=== PATIENT | female | born 1965 | race African-American/Black ===

== ENCOUNTER 2024-01-21 20:46 | Inpatient (IN) | payer MEDICARE, MEDICAID, SELFPAY ==
--- NOTE | ~2024-01-21 | CT_ITS ---
EXAMINATION: CT brain wo con DATE: 01/22/2024 10:16 INDICATION: Altered mental status. Delusions. TECHNIQUE: Computed tomography (CT) of the head was performed without intravenous contrast. Sagittal and coronal reconstructions were performed. The mA was adjusted according to patient size. Iterative reconstruction technique was employed. The dose-length product was 605.33 mGy-cm. COMPARISON: None FINDINGS: No acute intracranial hemorrhage, acute infarction or abnormal extra axial fluid collection. There is minimal scattered white matter hypoattenuation consistent with chronic small vessel ischemic disease . Mild increased prominence of the subarachnoid spaces overlying the convexities consistent with mild age-appropriate diffuse cerebral volume loss. Ventricles are normal and symmetric. No mass/mass eff ect. There is an empty sella with pituitary tissue flattened along the floor of the mildly prominen t CSF filled sella. The orbits, paranasal sinuses and mastoid air cells are normal. IMPRESSION: 1. Normal aging brain. No acute intracranial process. 2. Empty sella which can be seen in the setting of normal pressure hydrocephalus. Reviewed, dictated and finalized at location A. NEERING AND DEVELOPMENT DIRECTOR IMPRESSION: 1. Normal aging brain. No acute intracranial process. 2. Empty sella which can be seen in the setting of normal pressure hydrocepha jose.
[2024-01-21 20:47] VITALS: BP 147/90; PULSE 107; RESP 18; TEMP 36.7; O2SAT 92
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
--- NOTE | 2024-01-21 21:27 | ECG_ITS ---
Test Date: 2024-01-21 22:35:09 Measurements Intervals [place] Rate: P: SC: QRS: QRSD: T: QT: QTc: Interpretive Statements SINUS RHYTHM VENTRICULAR PREMATURE COMPLEX POSSIBLE LEFT ATRIAL ENLARGEMENT LEFT VENTRICULAR HYPERTROPHY WITH ST-T CHANGE BASELINE ARTIFACT- I, II, AVR BORDERLINE ECG Electronically Signed On 01-23-2024 11:39:13 PSYCHOTHERAPIST by Karan Siddiqui D.O.
--- NOTE | 2024-01-21 21:30 | PC.NURSE ---
State officer here to speak w/ pt about her [employer]. Per his report her vehicle has been towed to [place] and is being held in a lot per [employer] rules. They were unable to drop vehicle here at hospital due to officers eval that pt isn't fit to drive at this time. Pt worried about how she is going to get the vehicle and all her belongings. Pt reassured by officer that everything is safe and this staff reassured pt that we will have to evaluate her first and make decisions about her vehicle later. Pt calmed easily and is polite and cooperative with all care. She then starts speaking about not wanting to go to a psychiatric facility because the are all very mean at those places and that is not what I need. Pt states she needs some assistance in getting into an assisted living somewhere and she has vouchers to live at some of these places.
--- NOTE | 2024-01-21 21:31 | PC.NURSE ---
covid swab sent to lab
[2024-01-21 21:47] LABS: Basophils Absolute Auto 0.05 K/mm3 (0.00-0.10); Basophils Percent Auto 0.4 % (0.0-1.0); Eosinophils Absolute Auto 0.22 K/mm3 (0.02-0.50); Eosinophils Percent Auto 1.9 % (1.0-6.0); Hematocrit 35.8 % (35.0-49.0); Hemoglobin 11.7 g/dL (12.0-15.0); Immature Granulocyte Absolute 0.05 K/mm3 (0.00-0.00); Immature Granulocyte Percent A 0.4 % (0.0-0.0); Lymphocytes Absolute Auto 1.56 K/mm3 (1.10-4.50); Lymphocytes Percent Auto 13.3 % (18.0-42.0); Mean Corpuscular HGB Conc 32.7 g/dL (32-36); Mean Corpuscular Hemoglobin 27.9 pg (27.0-31.0); Mean Corpuscular Volume 85.2 fL (78.0-102.0); Mean Platelet Volume 10.3 fl (9.2-11.8); Monocytes Absolute Auto 0.85 K/mm3 (0.10-0.90); Monocytes Percent Auto 7.2 % (2.0-11.0); Neutrophils Percent Auto 76.8 % (50.0-70.0); Platelet Count Result 326 K/mm3 (150-420); Red Cell Distribution Width 13.3 % (11.6-14.4); White Blood Count 11.7 K/mm3 (4.8-10.8)
[2024-01-21] MEDS: NAPROXEN 250 MG TABLET 500 MG PO (21:59)
[2024-01-21] MEDS: HALOPERIDOL 0.5 MG TABLET PO (22:02)
[2024-01-21 22:08] LABS: Alanine Aminotransferase 9 U/L (14-59); Albumin Level 2.7 g/dL (3.4-5.0); Alkaline Phosphatase 79 U/L (46-116); Anion Gap 10 mmol/L (4-12); Aspartate Amino Transferase < 10 U/L (15-37); Blood Urea Nitrogen 9 mg/dL (7-18); Calcium 8.5 mg/dL (8.5-10.1); Carbon Dioxide 34 mmol/L (21-32); Chloride 100 mmol/L (98-108); Estimated CRCL calculation 73 ml/min; Estimated Glomerular Filt Rate > 60; Glucose 145 mg/dL (70-99); Osmolality Calculated 299 mOsm/kg (285-295); Sodium 144 mmol/L (136-145); Total Protein 7.7 g/dL (6.4-8.2)
[2024-01-21 22:10] LABS: Ethanol < 3 mg/dL (0-6)
--- NOTE | 2024-01-21 22:10 | PC.NURSE ---
Pt given po meds for pain and Haldol po. Explained reason for meds and pt somewhat reluctant to take her po meds. This RN stood to watch pt take her meds and she slowly put them in her mouth and did take them.
[2024-01-21 22:11] LABS: Potassium 2.1 mmol/L (3.5-5.1)
[2024-01-21 22:12] LABS: Thyroid Stimulating Hormone Reflex 0.81 u/IU/mL (0.36-3.74)
[2024-01-21 22:14] VITALS: BP 152/87; PULSE 75; RESP 18; O2SAT 94
[2024-01-21 22:36] LABS: SARS-CoV-2 Ag Negative (Negative)
[2024-01-21] MEDS: SODIUM CHLORIDE 0.9% IV 1,000 ML 999 ML IV CONT (22:42)
[2024-01-21] MEDS: KCL 20 MEQ/SW 100 ML 100 ML 50 MEQ IVPB (22:45)
--- NOTE | 2024-01-21 22:57 | PC.NURSE ---
Pt to go to Rm 205
--- NOTE | 2024-01-21 22:58 | PC.NURSE ---
Pt to go to Rm 206, report given to ERICA Sanabria
[2024-01-21 23:35] VITALS: BP 150/75; PULSE 78; RESP 18; TEMP 36.6; O2SAT 94
[2024-01-22] VITALS (7 sets, daily range): BP systolic 143–166; BP diastolic 60–84; PULSE 80–97; RESP 16–18; TEMP 36.2–36.8; O2SAT 93–97; BMI 38.7
--- NOTE | 2024-01-22 00:22 | ADMGEN ---
This patient, Willow Beebe, was admitted to 2nd Floor Room 206-1. Patient/family oriented to hospital policies and general routines including ID bracelet, bed and alarms, visiting hours, pain management, procedures, bathroom and other care routines, personal items, smoking policy, room service/diet, and visiting hours. Information on how to activate the Rapid Response Team has been discussed. Patient/Family are encouraged to report perceived risks to care and to ask questions if they do not understand what they are told or what they should do.
[2024-01-22] MEDS: SODIUM CHLORIDE 0.9% IV 1,000 ML 100 ML IV CONT (00:41)
[2024-01-22 06:28] LABS: Basophils Absolute Auto 0.03 K/mm3 (0.00-0.10); Basophils Percent Auto 0.3 % (0.0-1.0); Eosinophils Absolute Auto 0.45 K/mm3 (0.02-0.50); Eosinophils Percent Auto 4.9 % (1.0-6.0); Hematocrit 32.8 % (35.0-49.0); Hemoglobin 10.5 g/dL (12.0-15.0); Immature Granulocyte Absolute 0.05 K/mm3 (0.00-0.00); Immature Granulocyte Percent A 0.5 % (0.0-0.0); Lymphocytes Absolute Auto 1.64 K/mm3 (1.10-4.50); Mean Corpuscular Hemoglobin 27.2 pg (27.0-31.0); Mean Platelet Volume 10.5 fl (9.2-11.8); Monocytes Absolute Auto 0.59 K/mm3 (0.10-0.90); Monocytes Percent Auto 6.5 % (2.0-11.0); Neutrophils Absolute Auto 6.37 K/mm3 (1.70-7.20); Neutrophils Percent Auto 69.8 % (50.0-70.0); Platelet Count Result 269 K/mm3 (150-420); Red Blood Count 3.86 M/mm3 (4.20-5.40); Red Cell Distribution Width 13.5 % (11.6-14.4); White Blood Count 9.1 K/mm3 (4.8-10.8)
[2024-01-22 06:48] LABS: Alanine Aminotransferase 8 U/L (14-59); Albumin Level 2.4 g/dL (3.4-5.0); Alkaline Phosphatase 71 U/L (46-116); Anion Gap 8 mmol/L (4-12); Aspartate Amino Transferase < 10 U/L (15-37); Bilirubin,Total 0.8 mg/dL (0.00-1.00); Blood Urea Nitrogen 9 mg/dL (7-18); Calcium 8.2 mg/dL (8.5-10.1); Carbon Dioxide 33 mmol/L (21-32); Chloride 104 mmol/L (98-108); Estimated CRCL calculation 101 ml/min; Estimated Glomerular Filt Rate > 60; Glucose 95 mg/dL (70-99); Osmolality Calculated 298 mOsm/kg (285-295); Sodium 145 mmol/L (136-145); Total Protein 6.8 g/dL (6.4-8.2)
[2024-01-22 06:52] LABS: Potassium 2.1 mmol/L (3.5-5.1)
--- NOTE | 2024-01-22 06:58 | PC.NURSE ---
Lab called to report a critical potassium value of 2.1. Pierce Lundy NP, notified of results. No new orders at this time.
[2024-01-22 07:02] LABS: Magnesium 1.7 mg/dL (1.8-2.4)
[2024-01-22] MEDS: ACETAMINOPHEN 325 MG TABLET 650 MG PO ×2 (07:51→20:19)
[2024-01-22] MEDS: POTASSIUM CHLORIDE 20 MEQ ER TABLET 40 MEQ PO ×2 (07:51→20:18)
[2024-01-22] MEDS: KCL 20MEQ/0.9% SOD CHL 1,000 ML 100 ML IV CONT (07:51)
[2024-01-22 08:44] LABS: Add Urine Microscopic? YES; Bilirubin Urine Negative (Negative); Blood Urine Negative (Negative); Color Urine Yellow (Yellow); Glucose Urine UA Negative (Negative); Ketones Urine Trace (Negative); Leukocyte Esterase Ur Trace LEU/UL (Negative); Nitrate Urine Negative (Negative); Protein Urine 1+ (Negative)
[2024-01-22 08:53] LABS: Amphetamine Screen Urine Negative (Negative); Barbiturate Screen Urine Negative (Negative); Benzodiazepines Screen Urine Negative (Negative); Cannabinoid Screen Urine Negative (Negative); Cocaine Screen Urine Negative (Negative); Methadone Screen Urine Negative (Negative); Opiate Screen Urine Negative (Negative); Phencyclidine Screen Urine Negative (Negative)
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
[2024-01-22 09:31] LABS: Appearance Urine Sl Cloudy (Clear); RBC Urine 0-2 /hpf (0-2); Squamous Epithelial Cell Urine Many /hpf (Few)
[2024-01-22 09:32] LABS: Amorphous Sediment Urine Moderate; Bacteria Urine 1+ /hpf; White Blood Cell Casts Urine Present /lpf
[2024-01-22] MEDS: MAGNESIUM SULF 2 GM/WATER 50ML 2 GM/50 ML BAG IVPB (10:19)
[2024-01-22 10:54] LABS: Folic Acid 3.7 ng/mL (8.6->20); Vitamin B12 470 pg/mL (193-986)
[2024-01-22 10:56] LABS: Iron 21 ug/dL (50-170); Percent Iron Saturation 8 % (12-57)
[2024-01-22] MEDS: FOLIC ACID 1 MG TABLET PO (12:13)
[2024-01-22] MEDS: FERROUS SULFATE 325 MG TABLET DR PO (12:13)
[2024-01-22] MEDS: amLODIPine BESYLATE 5 MG TABLET 10 MG PO (18:20)
[2024-01-22] MEDS: PANTOPRAZOLE 40 MG TABLET PO (18:20)
[2024-01-22 19:01] LABS: Potassium 2.9 mmol/L (3.5-5.1)
[2024-01-22] MEDS: DICLOFENAC SODIUM 1% 100 GM GEL (*BKC) 1 APPLIC TOPICAL (20:20)
[2024-01-23] VITALS: BP 144/74; PULSE 84; RESP 16; TEMP 36.7; O2SAT 98
[2024-01-23 04:00] VITALS: BP 152/74; PULSE 88; RESP 16; TEMP 36.4; O2SAT 98
[2024-01-23 05:24] LABS: Basophils Absolute Auto 0.04 K/mm3 (0.00-0.10); Basophils Percent Auto 0.5 % (0.0-1.0); Eosinophils Absolute Auto 0.71 K/mm3 (0.02-0.50); Eosinophils Percent Auto 8.2 % (1.0-6.0); Hematocrit 31.5 % (35.0-49.0); Immature Granulocyte Absolute 0.03 K/mm3 (0.00-0.00); Immature Granulocyte Percent A 0.3 % (0.0-0.0); Lymphocytes Absolute Auto 1.32 K/mm3 (1.10-4.50); Lymphocytes Percent Auto 15.3 % (18.0-42.0); Mean Corpuscular HGB Conc 31.7 g/dL (32-36); Mean Corpuscular Hemoglobin 27.1 pg (27.0-31.0); Mean Corpuscular Volume 85.4 fL (78.0-102.0); Monocytes Percent Auto 5.8 % (2.0-11.0); Neutrophils Absolute Auto 6.04 K/mm3 (1.70-7.20); Neutrophils Percent Auto 69.9 % (50.0-70.0); Platelet Count Result 283 K/mm3 (150-420); Red Blood Count 3.69 M/mm3 (4.20-5.40); Red Cell Distribution Width 13.3 % (11.6-14.4); White Blood Count 8.6 K/mm3 (4.8-10.8)
[2024-01-23 05:49] LABS: Alanine Aminotransferase 7 U/L (14-59); Albumin Level 2.2 g/dL (3.4-5.0); Alkaline Phosphatase 71 U/L (46-116); Anion Gap 6 mmol/L (4-12); Aspartate Amino Transferase < 10 U/L (15-37); Bilirubin,Total 0.5 mg/dL (0.00-1.00); Blood Urea Nitrogen 6 mg/dL (7-18); Calcium 8.2 mg/dL (8.5-10.1); Carbon Dioxide 33 mmol/L (21-32); Chloride 107 mmol/L (98-108); Estimated CRCL calculation 126 ml/min; Estimated Glomerular Filt Rate > 60; Glucose 92 mg/dL (70-99); NT Pro B Type Natriuretic Pept 124 pg/mL (0-125); Osmolality Calculated 299 mOsm/kg (285-295); Potassium 2.8 mmol/L (3.5-5.1); Sodium 146 mmol/L (136-145); Total Protein 6.5 g/dL (6.4-8.2)
[2024-01-23 08:00] VITALS: BP 160/75; PULSE 86; PULSE 88; RESP 14; TEMP 37; O2SAT 98
[2024-01-23 08:17] LABS: Chlamydia trachomatis NOT DETECTED (NOT DETECTE); Neisseria gonorrhoeae PCR NOT DETECTED (NOT DETECTE)
--- NOTE | 2024-01-23 08:17 | PM.IMPN ---
Progress Note: A&P Assessment and Plan (1) Acute hypokalemia: Code(s): E87.6 - Hypokalemia Status: Acute Assessment and Plan: K 2.1 on admission. She received potassium 20 meq IVPB in the ED. Repeat labs showed a K 2.1. Patient received Potassium 40 meq PO and 600 ml of NS with 20 of K+ Magnesium was low at 1.7. Started on Magnesium 2 gram IVPB. She is on tele without ectopy Repeat labs in the afternoon showed low potassium 2.9 and she again received 40 mEq of p.o. K+ potassium this morning 01/22 is 2.8. She will receive 40 mEq p.o. K daily, and potassium 20 mEq IV piggyback added daily Mag-Ox (2) Schizophrenia: Qualifiers: Schizophrenia type: unspecified Qualified Code(s): F20.9 - Schizophrenia, unspecified Code(s): F20.9 - Schizophrenia, unspecified Status: Acute Assessment and Plan: Patient thinks Hai is able to speak through her as a vessel. She denies visual or auditory hallucinations but then says she just hears the voices. She denies suicide or homicidal thoughts. She states she has never attempted suicide. She is refusing psychiatric evaluation for inpatient psych at this time. flufenazine is non formulary. Patient with psychotic symptoms. will start her on Zyprexa daily 5 mg. may increase dose based on response and tolerability in increments of 5 mg/day at intervals >= week up to 20 mg/day prn haldol if she becomes agitated and aggressive prn attarax for anxiety qtc on EKG was 356/408 Not homicidal or suicidal Mini mental to be completed by speech therapy (3) Delusions: Code(s): F22 - Delusional disorders Status: Acute Assessment and Plan: Rule out other causes of possible altered cognition. CT head with no acute intracranial findings. No focal neurological deficits UDS negative, ETOH negative Vitamin B12 normal, folate low, Iron 21 and saturation 8% Started on folic acid and ferrous sulfate Hepatitis panel, RPR pending. Gonorrhea and chlamydia negative. TSH 0.81 (4) HTN (hypertension): Code(s): I10 - Essential (primary) hypertension Status: Acute Assessment and Plan: blood pressure is elevated 150s to 160s over 80s. Resumed amlodipine 10 mg daily monitor blood pressure response (5) Herpes: Code(s): B00.9 - Herpesviral infection, unspecified Status: Acute Assessment and Plan: patient reports a history of herpes and is on suppressive therapy with acyclovir resume acyclovir orally can add topical acyclovir if outbreak occurs (6) Arthritis: Code(s): M19.90 - Unspecified osteoarthritis, unspecified site Status: Acute Assessment and Plan: Patient states she has RA but this is unclear. She speaks about having steroid injections from an orthopedic doctor. Diclofenac gel Ibuprofen 600 mg PO as needed and Tylenol as needed for pain Plan Care coordination is assisting with safe discharge plan. Subjective Date/time seen: 01/23/24 08:17 Interval history: No acute events overnight. Patient has no complaints of headache, dizziness, chest pain, shortness a breath, abdominal pain, nausea, vomiting, diarrhea, or constipation. She had some neck pain yesterday that is improved with diclofenac gel. Review of Systems Review of Systems: All systems reviewed & are unremarkable except as noted in HPI and below Exam Narrative: General: appears comfortable, in no acute distress Respiratory: breathing is unlabored with even chest rise/fall, lungs are clear but diminished without wheezing, rhonchi, and crackles Cardiovascular: Rate and rhythm regular, normal s1s2, no murmur Abdomen: Soft, round, non-tender, active bowel sounds Extremities: No cyanosis or clubbing. Pulses 2/2. Slight bilateral lower extremity edema left greater that right. Neuro: A&O x 4, delusional Skin: Warm, dry, intact Objective Data Vital Signs Vital Signs: Vital Signs - 24 hr 01/22/24 11:40 01/22/24 12:00 01/22/24 16:00 Temperature 98 F Pulse Rate 84 97 80 Respiratory Rate 17 Blood Pressure 154/60 H Pulse Oximetry 96 Oxygen Delivery Room Air 01/22/24 16:00 01/22/24 20:00 01/22/24 20:00 Temperature 97.1 F L 97.4 F L Pulse Rate 92 84 86 Respiratory Rate 18 16 Blood Pressure 162/84 H 158/77 H Pulse Oximetry 97 97 Oxygen Delivery Room Air Room Air 01/23/24 00:00 01/23/24 00:00 01/23/24 04:00 Temperature 98.0 F Pulse Rate 84 84 88 Respiratory Rate 16 Blood Pressure 144/74 H Pulse Oximetry 98 Oxygen Delivery Room Air 01/23/24 04:00 Temperature 97.5 F L Pulse Rate 88 Respiratory Rate 16 Blood Pressure 152/74 H Pulse Oximetry 98 Oxygen Delivery Room Air Intake/Output Intake/Output: Intake & Output 01/21/24 01/22/24 01/22/24 01/23/24 00:59 00:59 23:59 23:59 Intake Total 520 Output Total 400 Balance 120 Meds/Results Medications: Active Medications Generic Name Dose Route Start Last Admin Trade Name Freq PRN Reason Stop Dose Admin Acetaminophen 650 mg 01/21/24 22:27 01/22/24 20:19 Acetaminophen 325 Mg Tablet PO 650 mg Q4H PRN Administration Mild Pain (1-3) or Fever Acyclovir 800 mg 01/23/24 09:00 Acyclovir 200 Mg Capsule PO DAILY [facility] Amlodipine Besylate 10 mg 01/22/24 17:15 01/22/24 18:20 Amlodipine Besylate 5 Mg Tablet PO 10 mg DAILY [facility] Administration Diclofenac Sodium 1 applic 01/22/24 21:00 01/22/24 20:20 Diclofenac Sodium 1% 100 Gm Gel (*Bk) TOPICAL 1 applic QID [facility] Administration Enoxaparin Sodium 40 mg 01/23/24 09:00 Enoxaparin 40 Mg/0.4 Ml Syringe SUB-Q DAILY [facility] Ferrous Sulfate 325 mg 01/22/24 11:15 01/22/24 12:13 Ferrous Sulfate [address] PO 325 mg DAILY [facility] Administration Folic Acid 1 mg 01/22/24 11:15 01/22/24 12:13 Folic Acid 1 Mg Tablet PO 1 mg DAILY [facility] Administration Haloperidol 0.5 mg 01/22/24 17:19 Haloperidol 0.5 Mg Tablet PO ONCE PRN agitation Hydroxyzine HCl 25 mg 01/22/24 17:21 Hydroxyzine Hcl 25 Mg Tablet PO Q6H PRN Itching Potassium Chloride 100 mls @ 50 mls/hr 01/23/24 08:16 Kcl 20 Meq/Sw 100 Ml IVPB 01/23/24 10:15 ONCE ONE Magnesium Oxide 400 mg 01/23/24 09:00 Magnesium Oxide 400 Mg Tablet PO DAILY [facility] Olanzapine 5 mg 01/23/24 21:00 Olanzapine Dispertab 5 Mg PO HS [facility] Pantoprazole Sodium 40 mg 01/22/24 17:55 01/22/24 18:20 Pantoprazole 40 Mg Tablet PO 40 mg QAM ERIKA Administration Potassium Chloride 40 meq 01/23/24 08:15 Potassium Chloride 20 Meq Er Tablet PO BIDWM ERIKA Radiology Results: ITS Impressions Head CT 01/22/24 11:52 IMPRESSION: 1. Normal aging brain. No acute intracranial process. 2. Empty sella which can be seen in the setting of normal pressure hydrocephalus. Labs Labs: Laboratory Results - last 24 hr 01/21/24 01/22/24 01/22/24 21:42 05:42 18:46 WBC RBC Hgb Hct MCV MCH MCHC RDW Plt Count MPV Immature Gran % (Auto) Neut % (Auto) Lymph % (Auto) [place] % (Auto) Eos % (Auto) Baso % (Auto) Lymph # (Auto) [place] # (Auto) Eos # (Auto) Baso # (Auto) Abs Immat Gran (auto) Absolute Neuts (auto) Absolute Nucleated RBC Nucleated RBC % Sodium Potassium 2.9 L Chloride Carbon Dioxide Anion Gap BUN Creatinine Estim Creat Clear Calc Estimated GFR Glucose Calculated Osmolality Calcium Magnesium 2.0 Iron 21 L TIBC 278 % Saturation 8 L Total Bilirubin AST ALT Alkaline Phosphatase NT-Pro-B Natriuret Pep Total Protein Albumin Vitamin B12 470 Folate 3.7 L Urine Color Yellow Urine Appearance Sl cloudy A Urine pH 6.0 Ur Specific [place] 1.020 Urine Protein 1+ H Urine Glucose (UA) Negative Urine Ketones Trace H Ur Blood (Man) Negative Urine Nitrate Negative Urine Bilirubin Negative Urine Urobilinogen 1.0 Leukocyte Esterase Rfl Trace H Urine RBC 0-2 Urine WBC 7-9 H Ur Squamous Epith Cells Many H Amorphous Sediment Moderate H Urine Bacteria 1+ H Hyaline Casts 3-4 H Granular Casts 5-9 H WBC Casts Present H Urine Opiates Screen Negative Urine Methadone Screen Negative Ur Barbiturates Screen Negative Ur Phencyclidine Scrn Negative Ur Amphetamine Screen Negative U Benzodiazepines Scrn Negative Urine Cocaine Screen Negative U Cannabinoids Screen Negative 01/23/24 05:09 WBC 8.6 RBC 3.69 L Hgb 10.0 L Hct 31.5 L MCV 85.4 MCH 27.1 MCHC 31.7 L RDW 13.3 Plt Count 283 MPV 10.0 Immature Gran % (Auto) 0.3 H Neut % (Auto) 69.9 Lymph % (Auto) 15.3 L [place] % (Auto) 5.8 Eos % (Auto) 8.2 H Baso % (Auto) 0.5 Lymph # (Auto) 1.32 [place] # (Auto) 0.50 Eos # (Auto) 0.71 H Baso # (Auto) 0.04 Abs Immat Gran (auto) 0.03 H Absolute Neuts (auto) 6.04 Absolute Nucleated RBC 0.00 Nucleated RBC % 0.0 Sodium 146 H Potassium 2.8 L Chloride 107 Carbon Dioxide 33 H Anion Gap 6 BUN 6 L Creatinine 0.50 L Estim Creat Clear Calc 126 Estimated GFR > 60 Glucose 92 Calculated Osmolality 299 H Calcium 8.2 L Magnesium Iron TIBC % Saturation Total Bilirubin 0.5 AST < 10 L ALT 7 L Alkaline Phosphatase 71 NT-Pro-B Natriuret Pep 124 Total Protein 6.5 Albumin 2.2 L Vitamin B12 Folate Urine Color Urine Appearance Urine pH Ur Specific [place] Urine Protein Urine Glucose (UA) Urine Ketones Ur Blood (Man) Urine Nitrate Urine Bilirubin Urine Urobilinogen Leukocyte Esterase Rfl Urine RBC Urine WBC Ur Squamous Epith Cells Amorphous Sediment Urine Bacteria Hyaline Casts Granular Casts WBC Casts Urine Opiates Screen Urine Methadone Screen Ur Barbiturates Screen Ur Phencyclidine Scrn Ur Amphetamine Screen U Benzodiazepines Scrn Urine Cocaine Screen U Cannabinoids Screen Quality VTE Prophylaxis VTE prophylaxis: pharmacologic ordered
[2024-01-23] MEDS: DICLOFENAC SODIUM 1% 100 GM GEL (*BKC) 1 APPLIC TOPICAL ×4 (10:37→21:30)
[2024-01-23] MEDS: KCL 20 MEQ/SW 100 ML 100 ML 50 MEQ IVPB (10:37)
[2024-01-23] MEDS: POTASSIUM CHLORIDE 20 MEQ ER TABLET 40 MEQ PO (10:38)
[2024-01-23] MEDS: ENOXAPARIN 40 MG/0.4 ML SYRINGE SUB-Q (10:39)
[2024-01-23] MEDS: MAGNESIUM OXIDE 400 MG TABLET PO (10:40)
[2024-01-23] MEDS: FOLIC ACID 1 MG TABLET PO (10:40)
[2024-01-23] MEDS: FERROUS SULFATE 325 MG TABLET DR PO (10:40)
[2024-01-23] MEDS: PANTOPRAZOLE 40 MG TABLET PO (10:40)
[2024-01-23] MEDS: ACYCLOVIR 200 MG CAPSULE 800 MG PO (10:41)
[2024-01-23] MEDS: amLODIPine BESYLATE 5 MG TABLET 10 MG PO (10:41)
[2024-01-23 12:00] VITALS: BP 160/78; PULSE 88; PULSE 92; RESP 14; TEMP 37.1; O2SAT 98
[2024-01-23] MEDS: SODIUM CHLORIDE 0.9% IV 500 ML 30 ML IV CONT (15:00)
[2024-01-23 16:00] VITALS: BP 138/81; PULSE 78; RESP 16; TEMP 36.6; O2SAT 98
[2024-01-23 20:00] VITALS: BP 144/64; PULSE 100; PULSE 95; RESP 16; TEMP 36.8; O2SAT 94
[2024-01-23] MEDS: IBUPROFEN 600 MG TABLET PO (21:31)
[2024-01-23] MEDS: OLANZapine DISPERTAB 5 MG PO (21:32)
[2024-01-24] VITALS: BP 158/65; PULSE 107; PULSE 96; RESP 16; TEMP 36.7; O2SAT 91
[2024-01-24 04:00] VITALS: BP 188/97; PULSE 82; PULSE 92; RESP 16; TEMP 36.8; O2SAT 93
[2024-01-24 05:58] LABS: Hematocrit 33.7 % (35.0-49.0); Hemoglobin 10.7 g/dL (12.0-15.0); Mean Corpuscular HGB Conc 31.8 g/dL (32-36); Mean Corpuscular Hemoglobin 27.2 pg (27.0-31.0); Mean Corpuscular Volume 85.5 fL (78.0-102.0); Mean Platelet Volume 10.1 fl (9.2-11.8); Platelet Count Result 337 K/mm3 (150-420); Red Blood Count 3.94 M/mm3 (4.20-5.40); Red Cell Distribution Width 13.3 % (11.6-14.4); White Blood Count 7.3 K/mm3 (4.8-10.8)
[2024-01-24 06:07] LABS: Alanine Aminotransferase 8 U/L (14-59); Albumin Level 2.5 g/dL (3.4-5.0); Alkaline Phosphatase 74 U/L (46-116); Anion Gap 7 mmol/L (4-12); Aspartate Amino Transferase < 10 U/L (15-37); Bilirubin,Total 0.5 mg/dL (0.00-1.00); Blood Urea Nitrogen 6 mg/dL (7-18); Calcium 8.5 mg/dL (8.5-10.1); Carbon Dioxide 32 mmol/L (21-32); Chloride 105 mmol/L (98-108); Estimated CRCL calculation 122 ml/min; Estimated Glomerular Filt Rate > 60; Glucose 90 mg/dL (70-99); Osmolality Calculated 295 mOsm/kg (285-295); Potassium 3.2 mmol/L (3.5-5.1); Sodium 144 mmol/L (136-145); Total Protein 7.2 g/dL (6.4-8.2)
[2024-01-24 06:28] LABS: Band Neutrophils Percent 0 % (0-6); Basophils Percent Manual 0 % (0-1); Eosinophils Absolute Manual 0.58 K/mm3 (0.02-0.50); Eosinophils Percent Manual 8 % (1-6); Lymphocytes Absolute Manual 1.82 K/mm3 (1.1-4.5); Lymphocytes Percent Manual 25 % (18-44); Monocytes Absolute Manual 0.14 K/mm3 (0.1-0.90); Monocytes Percent Manual 2 % (3-9); Neutrophils Absolute Manual 4.74 K/mm3 (1.7-7.2); Neutrophils Percent Manual 65 % (46-73); Platelet Estimate Adequate (Adequate); Total Cells Counted 100
[2024-01-24 08:00] VITALS: BP 158/80; PULSE 84; RESP 18; TEMP 36.3; O2SAT 95
[2024-01-24] MEDS: POTASSIUM CHLORIDE 20 MEQ ER TABLET 40 MEQ PO (09:09)
[2024-01-24] MEDS: IBUPROFEN 600 MG TABLET PO (09:10)
[2024-01-24] MEDS: amLODIPine BESYLATE 5 MG TABLET 10 MG PO (09:10)
[2024-01-24] MEDS: FOLIC ACID 1 MG TABLET PO (09:10)
[2024-01-24] MEDS: MAGNESIUM OXIDE 400 MG TABLET PO (09:10)
[2024-01-24] MEDS: PANTOPRAZOLE 40 MG TABLET PO (09:10)
[2024-01-24] MEDS: ACYCLOVIR 200 MG CAPSULE 800 MG PO (09:12)
[2024-01-24] MEDS: FERROUS SULFATE 325 MG TABLET DR PO (09:12)
[2024-01-24] MEDS: ENOXAPARIN 40 MG/0.4 ML SYRINGE SUB-Q (09:13)
[2024-01-24] MEDS: DICLOFENAC SODIUM 1% 100 GM GEL (*BKC) 1 APPLIC TOPICAL ×2 (09:13→12:51)
--- NOTE | 2024-01-24 09:57 | P.PNIM_ITS ---
Progress Note: A&P Assessment and Plan (1) Acute hypokalemia: Code(s): E87.6 - Hypokalemia Status: Acute Assessment and Plan: K 2.1 on admission. She received potassium 20 meq IVPB in the ED. Repeat labs showed a K 2.1. * Patient received Potassium 40 meq PO and 600 ml of NS with 20 of K+ * Magnesium was low at 1.7. Started on Magnesium 2 gram IVPB. * She is on tele without ectopy * Repeat labs in the afternoon showed low potassium 2.9 and she again received 40 mEq of p.o. K+ * potassium this morning 01/22 is 2.8. She will receive 40 mEq p.o. K daily, and potassium 20 mEq IV piggyback * added daily Mag-Ox (2) Schizophrenia: Qualifiers: Schizophrenia type: unspecified Qualified Code(s): F20.9 - Schizophrenia, unspecified Code(s): F20.9 - Schizophrenia, unspecified Status: Acute Assessment and Plan: Patient thinks Hai is able to speak through her as a vessel. She denies visual or auditory hallucinations but then says she just hears the voices. She denies suicide or homicidal thoughts. She states she has never attempted suicide. Pt states she does not need psych evaluation at this time her thought process is not stable and she is in need of a Psych evalaulation even thought she states she does not want or need one. * flufenazine is non formulary. Patient with psychotic symptoms. will start her on Zyprexa daily 5 mg. may increase dose based on response and tolerability in increments of 5 mg/day at intervals >= week up to 20 mg/day * prn haldol if she becomes agitated and aggressive * prn attarax for anxiety * qtc on EKG was 356/408 * Not homicidal or suicidal * Pt continue to have flights of thoughts (3) Delusions: Code(s): F22 - Delusional disorders Status: Acute Assessment and Plan: Rule out other causes of possible altered cognition. * CT head with no acute intracranial findings. No focal neurological deficits * UDS negative, ETOH negative * Vitamin B12 normal, folate low, Iron 21 and saturation 8% * Started on folic acid and ferrous sulfate * Hepatitis panel, RPR pending. Gonorrhea and chlamydia negative. * TSH 0.81 (4) HTN (hypertension): Code(s): I10 - Essential (primary) hypertension Status: Acute Assessment and Plan: blood pressure is elevated 150s to 160s over 80s. * Resumed amlodipine 10 mg daily * monitor blood pressure response (5) Herpes: Code(s): B00.9 - Herpesviral infection, unspecified Status: Acute Assessment and Plan: patient reports a history of herpes and is on suppressive therapy with acyclo vir * resume acyclovir orally * can add topical acyclovir if outbreak occurs (6) Arthritis: Code(s): M19.90 - Unspecified osteoarthritis, unspecified site Status: Acute Assessment and Plan: Patient states she has RA but this is unclear. She speaks about having steroid injections from an orthopedic doctor. * Diclofenac gel * Ibuprofen 600 mg PO as needed and Tylenol as needed for pain Plan Care coordination is assisting with safe discharge plan. Subjective Date/time seen: 01/24/24 09:57 Interval history: Last night had no acute events. Patient thoughts remain all over the place and she feel she is possessed with three people and Don lemon she needs to talk to . Patient labs have been reviewed and she is currently medically stable for a Psych evaluation at this time. 01/23/2024 No acute events overnight. Patient has no complaints of headache, dizziness, chest pain, shortness a breath, abdominal pain, nausea, vomiting, diarrhea, or constipation. She had some neck pain yesterday that is improved with diclofenac gel. Exam Narrative: General: appears comfortable, in no acute distress Respiratory: breathing is unlabored with even chest rise/fall, lungs are clear but diminished without wheezing, rhonchi, and crackles Cardiovascular: Rate and rhythm regular, normal s1s2, no murmur Abdomen: Soft, round, non-tender, active bowel sounds Extremities: No cyanosis or clubbing. Pulses 2/2. Slight bilateral lower extremity edema left greater that right. Neuro: A&O x 4, delusional Skin: Warm, dry, intact Objective Data Vital Signs Vital Signs: Vital Signs - 24 hr 01/23/24 12:00 01/23/24 12:00 01/23/24 16:00 Temperature 98.8 F 98 F Pulse Rate 88 92 78 Respiratory Rate 14 16 Blood Pressure 160/78 H 138/81 Pulse Oximetry 98 98 Oxygen Delivery Room Air Room Air 01/23/24 16:00 01/23/24 20:00 01/23/24 20:00 Temperature 98.2 F Pulse Rate 78 100 95 Respiratory Rate 16 Blood Pressure 144/64 H Pulse Oximetry 94 Oxygen Delivery Room Air 01/24/24 00:00 01/24/24 00:00 01/24/24 04:00 Temperature 98.1 F Pulse Rate 107 H 96 82 Respiratory Rate 16 Blood Pressure 158/65 H Pulse Oximetry 91 Oxygen Delivery Room Air 01/24/24 04:00 Temperature 98.2 F Pulse Rate 92 Respiratory Rate 16 Blood Pressure 188/97 H Pulse Oximetry 93 Oxygen Delivery Room Air Intake/Output Intake/Output: Intake & Output 01/22/24 01/22/24 01/23/24 01/24/24 00:59 23:59 23:59 23:59 Intake Total 2260 655 Output Total 400 300 Balance 1860 355 Meds/Results Medications: Active Medications Generic Name Dose Route Start Last Admin Trade Name Freq PRN Reason Stop Dose Admin Acetaminophen 650 mg 01/21/24 22:27 01/22/24 20:19 Acetaminophen 325 Mg Tablet PO 650 mg Q4H PRN Administration Fever Acyclovir 800 mg 01/23/24 09:00 01/24/24 09:12 Acyclovir 200 Mg Capsule PO 800 mg DAILY ERIKA Administration Amlodipine Besylate 10 mg 01/22/24 17:15 01/24/24 09:10 Amlodipine Besylate 5 Mg Tablet PO 10 mg DAILY ERIKA Administration Diclofenac Sodium 1 applic 01/22/24 21:00 01/24/24 09:13 Diclofenac Sodium 1% 100 Gm Gel (*Bkc) TOPICAL 1 applic QID ERIKA Administration Enoxaparin Sodium 40 mg 01/23/24 09:00 01/24/24 09:13 Enoxaparin 40 Mg/0.4 Ml Syringe SUB-Q 40 mg DAILY ERIKA Administration Ferrous Sulfate 325 mg 01/22/24 11:15 01/24/24 09:12 Ferrous Sulfate [address] PO 325 mg DAILY ERIKA Administration Folic Acid 1 mg 01/22/24 11:15 01/24/24 09:10 Folic Acid 1 Mg Tablet PO 1 mg DAILY ERIKA Administration Haloperidol 0.5 mg 01/22/24 17:19 Haloperidol 0.5 Mg Tablet PO ONCE PRN agitation Hydroxyzine HCl 25 mg 01/22/24 17:21 Hydroxyzine Hcl 25 Mg Tablet PO Q6H PRN Itching Ibuprofen 600 mg 01/23/24 13:48 01/24/24 09:10 Ibuprofen 600 Mg Tablet PO 600 mg Q6H PRN Administration Pain Rated 1-3 Magnesium Oxide 400 mg 01/23/24 09:00 01/24/24 09:10 Magnesium Oxide 400 Mg Tablet PO 400 mg DAILY ERIKA Administration Olanzapine 5 mg 01/23/24 21:00 01/23/24 21:32 Olanzapine Dispertab 5 Mg PO 5 mg HS ERIKA Administration Pantoprazole Sodium 40 mg 01/22/24 17:55 01/24/24 09:10 Pantoprazole 40 Mg Tablet PO 40 mg QAM ERIKA Administration Potassium Chloride 40 meq 01/23/24 08:20 01/24/24 09:09 Potassium Chloride 20 Meq Er Tablet PO 40 meq DAILY@0800 ERIKA Administration Radiology Results: ITS Impressions Head CT 01/22/24 11:52 IMPRESSION: 1. Normal aging brain. No acute intracranial process. 2. Empty sella which can be seen in the setting of normal pressure hydrocephalus. Labs Labs: Laboratory Results - last 24 hr 01/24/24 05:38 WBC 7.3 RBC 3.94 L Hgb 10.7 L Hct 33.7 L MCV 85.5 MCH 27.2 MCHC 31.8 L RDW 13.3 Plt Count 337 MPV 10.1 Immature Gran % (Auto) Not Reportable Neut % (Auto) Not Reportable Lymph % (Auto) Not Reportable [place] % (Auto) Not Reportable Eos % (Auto) Not Reportable Baso % (Auto) Not Reportable Lymph # (Auto) Not Reportable [place] # (Auto) Not Reportable Eos # (Auto) Not Reportable Baso # (Auto) Not Reportable Abs Immat Gran (auto) Not Reportable Absolute Neuts (auto) Not Reportable Absolute Nucleated RBC Not Reportable Total Counted 100 Neutrophils % (Manual) 65 Band Neutrophils % 0 Lymphocytes % (Manual) 25 Monocytes % (Manual) 2 L Eosinophils % (Manual) 8 H Basophils % (Manual) 0 Nucleated RBC % Not Reportable Abs Neuts (Manual) 4.74 Abs Lymphs (Manual) 1.82 Abs Monocytes (Manual) 0.14 Absolute Eos (Manual) 0.58 H Abs Basophils (Manual) 0.00 Platelet Estimate Adequate Schistocytes Not Reportable Sodium 144 Potassium 3.2 L Chloride 105 Carbon Dioxide 32 Anion Gap 7 BUN 6 L Creatinine 0.52 L Estim Creat Clear Calc 122 Estimated GFR > 60 Glucose 90 Calculated Osmolality 295 Calcium 8.5 Total Bilirubin 0.5 AST < 10 L ALT 8 L Alkaline Phosphatase 74 Total Protein 7.2 Albumin 2.5 L
[2024-01-24 10:15] LABS: Thyroid Stimulating Hormone Reflex 1.66 u/IU/mL (0.36-3.74)
[2024-01-24 10:49] LABS: SARS-CoV-2 RNA PCR Negative (Negative)
[2024-01-24 12:00] VITALS: BP 138/84; PULSE 84; RESP 18; TEMP 36.1; O2SAT 95
[2024-01-24 12:28] LABS: RPR Screen NON-REACTIVE (NON-REACTIVE)
--- NOTE | 2024-01-24 13:13 | P.DS_ITS ---
DS: Admitting Diagnosis Discharge Date 01/24/2024 Admitting Diagnosis hypokalemia, Alter mental status, Tachycardia, ?Schizophrenia DS: Discharge Diagnosis Discharge Diagnosis (1) Acute hypokalemia: Code(s): E87.6 - Hypokalemia Status: Acute Assessment and Plan: K 2.1 on admission. She received potassium 20 meq IVPB in the ED. Repeat labs showed a K 2.1. * Patient received Potassium 40 meq PO and 600 ml of NS with 20 of K+ * Magnesium was low at 1.7. Started on Magnesium 2 gram IVPB. * She is on tele without ectopy * Repeat labs in the afternoon showed low potassium 2.9 and she again received 40 mEq of p.o. K+ * potassium this morning 01/22 is 2.8. She will receive 40 mEq p.o. K daily, and potassium 20 mEq IV piggyback * added daily Mag-Ox (2) Schizophrenia: Qualifiers: Schizophrenia type: unspecified Qualified Code(s): F20.9 - Schizophrenia, unspecified Code(s): F20.9 - Schizophrenia, unspecified Status: Acute Assessment and Plan: Patient thinks Hai is able to speak through her as a vessel. She denies visual or auditory hallucinations but then says she just hears the voices. She denies suicide or homicidal thoughts. She states she has never attempted suicide. Pt states she does not need psych evaluation at this time her thought process is not stable and she is in need of a Psych evalaulation even thought she states she does not want or need one. * flufenazine is non formulary. Patient with psychotic symptoms. will start her on Zyprexa daily 5 mg. may increase dose based on response and tolerability in increments of 5 mg/day at intervals >= week up to 20 mg/day * prn haldol if she becomes agitated and aggressive * prn attarax for anxiety * qtc on EKG was 356/408 * Not homicidal or suicidal * Pt continue to have flights of thoughts (3) Delusions: Code(s): F22 - Delusional disorders Status: Acute Assessment and Plan: Rule out other causes of possible altered cognition. * CT head with no acute intracranial findings. No focal neurological deficits * UDS negative, ETOH negative * Vitamin B12 normal, folate low, Iron 21 and saturation 8% * Started on folic acid and ferrous sulfate * Hepatitis panel, RPR pending. Gonorrhea and chlamydia negative. * TSH 0.81 (4) HTN (hypertension): Code(s): I10 - Essential (primary) hypertension Status: Acute Assessment and Plan: blood pressure is elevated 150s to 160s over 80s. * Resumed amlodipine 10 mg daily * monitor blood pressure response (5) Herpes: Code(s): B00.9 - Herpesviral infection, unspecified Status: Acute Assessment and Plan: patient reports a history of herpes and is on suppressive therapy with acyclovir * resume acyclovir orally * can add topical acyclovir if outbreak occurs (6) Arthritis: Code(s): M19.90 - Unspecified osteoarthritis, unspecified site Status: Acute Assessment and Plan: Patient states she has RA but this is unclear. She speaks about having steroid injections from an orthopedic doctor. * Diclofenac gel * Ibuprofen 600 mg PO as needed and Tylenol as needed for pain Plan Care coordination is assisting with safe discharge plan. DS: Summary Hospital Course Reason for hospitalization: Schizophrenia, hypokalemia, Alter mental status Hospital Course: This is a 58 year old female that was admitted to hospital with hypokalemia, Alter mental status, Schizophrenia, Parnoid Time Spent with Patient Time attestation: Total time spent providing and/or coordinating discharge services: Exam Narrative: General: appears comfortable, in no acute distress Respiratory: breathing is unlabored with even chest rise/fall, lungs are clear but diminished without wheezing, rhonchi, and crackles Cardiovascular: Rate and rhythm regular, normal s1s2, no murmur Abdomen: Soft, round, non-tender, active bowel sounds Extremities: No cyanosis or clubbing. Pulses 2/2. Slight bilateral lower extremity edema left greater that right. Neuro: A&O x 4, delusional Skin: Warm, dry, intact DS: Data Data Completed and Pending Labs on day of discharge: Labs from last 24 hours 01/24/24 01/24/24 01/22/24 10:07 05:38 05:42 WBC 7.3 RBC 3.94 L Hgb 10.7 L Hct 33.7 L MCV 85.5 MCH 27.2 MCHC 31.8 L RDW 13.3 Plt Count 337 MPV 10.1 Immature Gran % (Auto) Not Reportable Neut % (Auto) Not Reportable Lymph % (Auto) Not Reportable [place] % (Auto) Not Reportable Eos % (Auto) Not Reportable Baso % (Auto) Not Reportable Lymph # (Auto) Not Reportable [place] # (Auto) Not Reportable Eos # (Auto) Not Reportable Baso # (Auto) Not Reportable Abs Immat Gran (auto) Not Reportable Absolute Neuts (auto) Not Reportable Absolute Nucleated RBC Not Reportable Total Counted 100 Neutrophils % (Manual) 65 Band Neutrophils % 0 Lymphocytes % (Manual) 25 Monocytes % (Manual) 2 L Eosinophils % (Manual) 8 H Basophils % (Manual) 0 Nucleated RBC % Not Reportable Abs Neuts (Manual) 4.74 Abs Lymphs (Manual) 1.82 Abs Monocytes (Manual) 0.14 Absolute Eos (Manual) 0.58 H Abs Basophils (Manual) 0.00 Platelet Estimate Adequate Schistocytes Not Reportable Sodium 144 Potassium 3.2 L Chloride 105 Carbon Dioxide 32 Anion Gap 7 BUN 6 L Creatinine 0.52 L Estim Creat Clear Calc 122 Estimated GFR > 60 Glucose 90 Calculated Osmolality 295 Calcium 8.5 Total Bilirubin 0.5 AST < 10 L ALT 8 L Alkaline Phosphatase 74 Total Protein 7.2 Albumin 2.5 L TSH (Reflex) 1.66 RPR Non-reactive SARS-CoV-2 RNA (RT-PCR) Negative Discharge Plan Discharge Attending physician on discharge: Taurus Cummings Discharging Clinician: Immanuel Yi Anticipated Discharge Date/Time: 01/24/24 13:04 Patient Disposition: Other Activity: may shower Diet: regular Discharge Instructions: Patient going to [facility] Patient Instructions: Antibiotic Form, Hypokalemia (DC), Schizophrenia (DC), Weakness (DC) Stand Alone Forms: General Discharge Information Discharge Medications: No Action Unable to Obtain Home Medications Date of admission: 01/22/24 09:51 Primary Care Provider: UNKNOWN,DOCTOR Admitting Provider: Taurus Cummings Attending physician on admission: Taurus Cummings Condition: Stable
[2024-01-24] MEDS: LORazepam INJ (*CRX) 2 MG/ML VIAL IV PUSH ×2 (15:38→16:18)
[2024-01-24] MEDS: HALOPERIDOL LACTATE 5 MG/ML VIAL IM (15:42)
--- NOTE | 2024-01-24 16:57 | PC.NURSE ---
1400 report given to luciana at [facility]. they will accept here. [facility] called and will transport. patient aware of transfer but does not want to go. still very upset that region manager had brought this up. claims at times she is the chosen one of letha and here to save felcia. next she is [facility] and talks about lorie loera. getting him here to to say their vows. upset that other black females are trying to steal him from her.
--- NOTE | 2024-01-24 17:03 | PC.NURSE ---
1520 ambulance here and patient very loud and not wanting to leave. refuses to leve bed. claims we promised her a 2 bed apartment and marriage to lorie love. very upset yet with lighting designer. claims harm if she is to show up here. claiming harm if we attempt. calls medicare and medicaid to report. getting louder and louder. more agitated. getting wild look in eyes. talking faster and faster. 1538 did allow nurse to given one time ativan 2mg iv and 5mg Haldol Im. getting drozy at this time. still claims she is not leaving til we get her her a apartment and her vows arranged with mr loera. keeps taling back and forth as the chosen one to protect awa and then as awa. 1600 sleeping soundly 1618 eyes open talks about how she slept for hours and wanting to don lennoen and not leaving this bed til we find her a place. talks of taoist, evil spirits, and taking her vows with lorie loera. upset her belonging are locked up at a rent a truck place in [facility]. voices wanting to hurt cause harm to lighting designer because she has set all this up. getting loud. 2mg ativan given iv. 1620 ambulance notified of transfer. 1645 ambulance here and she was loaded with no difficulty. eyes open and did talk about not wanting to go but allowed us to pull her over to stretcher. 1705 update called to luciana.
[2024-01-25 05:49] LABS: Hepatitis B Surface Antigen NON-REACTIVE (NON-REACTIVE); Hepatitis C Virus Antibody NON-REACTIVE (NON-REACTIVE)
[2024-01-25 05:58] LABS: Hepatitis A Antibody IgM NON-REACTIVE (NON-REACTIVE); Hepatitis B Core Antibody NON-REACTIVE (NON-REACTIVE)
== END 2024-01-24 16:45 | DRG 885 ==
LOC: CHSED 22:25 → CHS2ND 23:08
PROVIDERS: Nurse Practitioner Acute Care; Nurse Practitioner Family; Admitting Provider Internal Medicine; Emergency Provider Emergency Medicine; Visit Provider Internal Medicine
DX: F20.9 Schizophrenia, unspecified (principal); E87.6 Hypokalemia; F22 Delusional disorders; I10 Essential (primary) hypertension; K21.9 Gastro-esophageal reflux disease without esophagitis; K44.9 Diaphragmatic hernia without obstruction or gangrene; M06.9 Rheumatoid arthritis, unspecified; B00.9 Herpesviral infection, unspecified; M19.90 Unspecified osteoarthritis, unspecified site
CPT/HCPCS: 36415; 70450; 80053; 80074; 80307; 81001; 82077; 82607; 82746; 83540; 83550; 83735; 83880; 84132; 84443; 85025; 86592; 87426; 87491; 87591; 87635; 93005; 96125; 96365; 96366; 97161; 97165; 99285; A9270; G0378; J1630; J1650; J2060; J3475; J3480; J7030; J7040